=== PATIENT | male | born 1985 | race Caucasian/White ===

== ENCOUNTER 2021-12-18 05:15 | Outpatient (CLI) | payer OTHER, SELFPAY | END 2021-12-18 05:16 | disposition home or self-care (01) | LOC: AMB 01-16 12:07 | PROVIDERS: Visit Provider Family Medicine | DX: S29.9XXA Unspecified injury of thorax, initial encounter (principal); V48.0XXA Car driver injured in noncollision transport accident in nontraffic accident, initial encounter; Y92.410 Unspecified street and highway as the place of occurrence of the external cause | CPT/HCPCS: A0998 ==

== ENCOUNTER 2022-07-17 20:10 | Outpatient (CLI) | payer SELFPAY | END 2022-07-17 20:11 | disposition home or self-care (01) | LOC: AMB 07-21 00:35 | PROVIDERS: Visit Provider Family Medicine | DX: S29.9XXA Unspecified injury of thorax, initial encounter (principal); Y35.833A Legal intervention involving a conducted energy device, suspect injured, initial encounter; Y92.9 Unspecified place or not applicable | CPT/HCPCS: A0425; A0429 ==

== ENCOUNTER 2022-07-17 20:32 | Emergency (ER) | payer SELFPAY ==
[2022-07-17] VITALS (14 sets, daily range): BP systolic 115–150; BP diastolic 61–87; PULSE 96–123; RESP 6–32; TEMP 37.2; O2SAT 93–97
--- NOTE | 2022-07-17 20:45 | ED.NURSE ---
Notable L testicular swelling observed while assisting pt with urinal. Pt complaining of pain in his L testicle as well. notified of finding.
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
[2022-07-17 21:11] LABS: Basophils Absolute Auto 0.02 K/uL (0.00-0.30); Basophils Percent Auto 0.3 % (0.0-3.0); Eosinophils Absolute Auto 0.06 K/uL (0.00-0.50); Eosinophils Percent Auto 0.9 % (0.0-7.0); Hematocrit 45.5 % (37.0-53.0); Hemoglobin* 14.6 gm/dL (13.5-17.5); Immature Granulocytes Abs Auto 0.08 K/uL (0.00-0.30); Immature Granulocytes Pct Auto 1.1 %; Lymphocytes Absolute Auto 2.53 K/uL (0.90-2.90); Lymphocytes Percent Auto 36.3 % (20-44); Mean Corpuscular HGB Conc 32 gm/dL (32-36); Mean Corpuscular Hemoglobin 29 pg (26-34); Mean Corpuscular Volume 92 fL (80-100); Monocytes Percent Auto 7.5 % (0.0-11.0); Neutrophils Absolute Auto 3.76 K/uL (1.7-7.0); Neutrophils Percent Auto 53.9 % (42.0-72.0); Platelet Count* 225 K/uL (140-440); RDW Coefficient of Variation % 13.2 % (11.5-15.5); Red Blood Count 4.96 m/uL (4.30-5.90); White Blood Count* 6.97 K/uL (4.50-11.00)
[2022-07-17 21:11] LABS: Appearance Urine Clear (Clear); Bilirubin Urine Negative (Negative); Blood Urine Trace-lysed (Negative); Color Urine Yellow (Yellow); Glucose Urine Negative (Negative); Ketones Urine Negative (Negative); Leukocyte Esterase Urine 1+ (Negative); Nitrite Urine Negative (Negative); Protein Urine 1+ (Negative); Specific Gravity Urine <= 1.005 (1.000-1.030); Urobilinogen Urine 0.2 (0.2-1.0); pH Urine 5.5 (5.0-8.5)
[2022-07-17 21:12] LABS: Slide Review Reflex No
[2022-07-17 21:21] LABS: Amphetamine Screen Urine Negative (Negative); Barbiturate Screen Urine Negative (Negative); Benzodiazepines Screen Urine Negative (Negative); Methadone Screen Urine Negative (Negative); Methamphetamines Screen Urine Negative (Negative); Opiate Screen Urine Negative (Negative); Oxycodone Screen Urine Negative (Negative); Phencyclidine Screen Urine Negative (Negative); Tricyclic Antidepressant Urine Negative (Negative)
[2022-07-17 21:25] LABS: Albumin* 4.7 g/dL (3.3-5.0); Chloride* 109 mmol/L (96-114); Sodium* 141 mmol/L (135-149)
[2022-07-17 21:27] LABS: Cannabinoid Screen Urine POSITIVE (Negative); Cocaine Screen Urine POSITIVE (Negative)
[2022-07-17 21:27] LABS: Estimated Glomerular Filt Rate 100 ml/min
[2022-07-17 21:28] LABS: Alanine Aminotransferase* 92 U/L (4-50); Alkaline Phosphatase* 64 U/L (40-150); Aspartate Amino Transferase* 54 U/L (12-35); Bilirubin Total* 0.4 mg/dL (0.1-1.5); Blood Urea Nitrogen* 12 mg/dL (5-24); Carbon Dioxide* 15 mmol/L (20-32); Glucose* 127 mg/dL (60-115); Total Protein* 8.1 g/dL (6.0-8.3)
[2022-07-17 21:29] LABS: Calcium* 8.5 mg/dL (8.4-10.6); Ethanol* 0.16 % (0.01-0.03)
--- NOTE | 2022-07-17 21:35 | ED.NURSE ---
Pt voids approx 500mLs pale yellow urine into urinal.
[2022-07-17 21:46] LABS: Bacteria Urine Few; Squamous Epithelial Cell Urine Few (None-Few)
[2022-07-17] MEDS: POTASSIUM CHLORIDE 10 MEQ/100 ML PIGGYBACK 100 MEQ IVPB (22:12)
[2022-07-17] MEDS: POTASSIUM BICARB 25 MEQ EFFERVESCENT TAB 50 MEQ PO (22:20)
--- NOTE | 2022-07-17 22:20 | ED.NURSE ---
Pt requests an district service manager at this time. Pt had been speaking Yi to communicate with staff without apparent issue to this point. [employer]ant Ipad placed in room upon pt request.
--- NOTE | 2022-07-17 23:05 | ED.NURSE ---
Pt c/o discomfort at IV site. Pt requesting IV potassium be DC'd. IV potassium DC'd at pt request. Approx 6 meQ infused. notified.
--- NOTE | 2022-07-17 23:06 | ED.NURSE ---
PD in with warrant for legal blood draw.
--- NOTE | 2022-07-17 23:25 | ED.NURSE ---
Lab in for legal blood draw.
--- NOTE | 2022-07-17 23:35 | CRLHL7_ITS ---
For Patients: As a result of the Century Cures Act, medical imaging exams and procedure reports are released immediately into your electronic medical record. You may view this report before your referring provider. If you have questions, please contact your health care provider. INDICATION: Follow-up left lower quadrant abnormality noted on recent CT with differential considerations between mesenteric contusion versus fatty changes associated with inguinal hernia. COMPARISON: Portions of the study from July 17, 2022 at 9:20 p.m.. This study is from July 18, 2022 at 4:25 a.m. TECHNIQUE: CT examination of the abdomen and pelvis was performed following the uneventful intravenous administration of 122 cc of Isovue 370. Thin section axial images were obtained from the lung bases through the pubic symphysis. Oral contrast was not administered. Please note that all CT scans at this facility use dose modulation, iterative reconstruction, and/or weight-based dosing when appropriate to reduce radiation dose to as low as reasonably achievable. FINDINGS: LUNG BASES: Trace basilar atelectasis. Heart size normal. The lung bases. LIVER/BILIARY SYSTEM:Hepatic steatosis. There is a 2.2 centimeter lesion in the right lobe of the liver. This has peripheral nodular enhancement suggesting a small hepatic hemangioma.The gall bladder appears normal. ADRENALS: Normal KIDNEYS, URETERS and BLADDER:The kidneys appear normal. No visible mass, calculus or hydronephrosis. The ureters and bladder as visualized appear normal. SPLEEN:Normal appearance. PANCREAS: Appears normal. RETROPERITONEUM and MESENTERY: There is no mass, adenopathy or aortic aneurysm. Again noted is a relatively large fat containing left inguinal hernia extending towards the left scrotal sac. There is vascular prominence and increased density associated with the fat this hernia including immediately anterior to the sigmoid as noted previously. This is unchanged. I doubt this is posttraumatic because it is unchanged and there is no visible abnormality attributable to trauma anterior to this area. GASTROINTESTINAL SYSTEM: There is no evidence of diverticulitis, colitis, mechanical obstruction, or appendicitis. The small bowel as visualized appears normal.A few scattered diverticula are noted PELVIS: No mass, adenopathy or free fluid. OSSEOUS STRUCTURES and ABDOMINAL WALL: No acute osseous abnormality.Left inguinal hernia as discussed above OTHER: No free fluid or free air. IMPRESSION: 1. Again noted is a relatively large fat containing left inguinal hernia extending towards the scrotal sac. The area of abnormal increased density in the mesenteric fat in this area is unchanged. The lack of interval change and the lack of additional associated findings suggest that this is not posttraumatic. 2. Hepatic steatosis. Probable 2.2 centimeter hemangioma in the right lobe of the liver. 3. A few scattered diverticula are noted Please note that all CT scans at this facility use dose modulation, iterative reconstruction, and/or weight-based dosing when appropriate to reduce radiation dose to as low as reasonably achievable. Dictated by Benja Cobb MD @ 07/18/2022 4:49:57 AM (Electronically Signed)
--- NOTE | 2022-07-18 00:20 | ED.NURSE ---
pt given blanket. Lights turned off. Pt sleeping. Officer in room with patient.
--- NOTE | 2022-07-18 02:20 | ED.NURSE ---
Janelle Enriquez () # [phone] number called at [phone]. No answer.
[2022-07-18] MEDS: ONDANSETRON 2 MG/ML inj 4 MG IVP (02:38)
--- NOTE | 2022-07-18 04:32 | ED.NURSE ---
pt taken to and from CT with PD officer present. No complications during CT.
--- NOTE | 2022-07-18 05:30 | ED.NURSE ---
pt given verbal discharge instructions. Police officers given pt discharge paperwork. IV removed, cath intact. Pt given paper scrub shirt. Pt did not arrive with a shirt. No questions upon discharge.
[2022-07-18 06:16] LABS: HIV 1/2/P24 Combo Screen* Negative (Negative); Hepatitis B Surface Antigen* Negative (Negative); Hepatitis C Virus Antibody* Negative (Negative)
== END 2022-07-18 05:30 ==
PROVIDERS: Family Medicine; Emergency Provider Family Medicine
DX: R07.89 Other chest pain (principal); F10.129 Alcohol abuse with intoxication, unspecified; E87.6 Hypokalemia; K40.20 Bilateral inguinal hernia, without obstruction or gangrene, not specified as recurrent; F14.99 Cocaine use, unspecified with unspecified cocaine-induced disorder; V49.88XA Car occupant (driver) (passenger) injured in other specified transport accidents, initial encounter
CPT/HCPCS: 36415; 70450; 71260; 72125; 72128; 72131; 74177; 76870; 80053; 80306; 81001; 82077; 84484; 85025; 86703; 86803; 87086; 87340; 93005; 93976; 94761; 96365; 96375; 99285; 99291; A9270; G0390; J2405; J3480; Q9967